=== PATIENT | male | born 1975 | race African-American/Black ===

== ENCOUNTER 2025-04-23 19:36 | Emergency (ER) | payer OTHER ==
[~2025-04-23] VITALS: Ht 193 cm; Wt 117.9 kg
[2025-04-23 20:08] VITALS: BP 127/69; TEMP 98; O2SAT 99
== END 2025-04-23 20:12 | disposition home or self-care (01) ==
LOC: ER 19:43
DX: S39.011A Strain of muscle, fascia and tendon of abdomen, initial encounter (principal); S30.1XXA Contusion of abdominal wall, initial encounter; V43.52XA Car driver injured in collision with other type car in traffic accident, initial encounter; Y93.89 Activity, other specified; Y92.488 Other paved roadways as the place of occurrence of the external cause; Y99.8 Other external cause status
CPT/HCPCS: A4606; A4663